=== PATIENT | male | born 1990 | race Caucasian/White ===

== ENCOUNTER 2016-06-23 09:18 | Emergency (ER) | payer OTHER ==
[2016-06-23 09:37] VITALS: TEMP 98.3; BMI 49.0
--- NOTE | 2016-06-23 10:14 | EDPRACDOC ---
- General Information Chief Complaint: Allergic Reaction Stated Complaint: ALLERGIC REACTION Time Seen by Provider: 06/23/16 09:43 Information Source: Patient Home Medications: Home Medications Azithromycin [Zithromax] 250 mg PO DAILY 06/23/16 Prednisone [Deltasone, Orasone] 1 tab PO DAILY #10 tablet 06/23/16 Prednisone [Deltasone, Orasone] 20 mg PO BID 06/23/16 Allergies/Adverse Reactions: Allergies Allergy/AdvReac Type Severity Reaction Status Date / Time No Known Drug Allergies Allergy Unknown Verified 06/23/16 11:01 - History of Present Illness HPI: STARTED ZPAK 5 DAYS AGO. RASH STARTED THIS AM. ALSO TAKING PREDNISONE. NO NEW EXPOSURE AT WORK PER PT. Exposure occurred: 05 Exposed to: Medication Symptoms started: Minutes Symptoms Developed: Denies: Difficulty swallowing Reaction Severity: Shortness of breath: None, Rash: Moderate, Difficult swallowing: None, Prurits: Moderate Reaction Location: Reports: Generalized Associated Signs and Symptoms: Reports: None ED Past Medical History - History Reviewed Yes Nurses notes reviewed and agree except as marked - Patient Medical History Psychological History: Denies: Depression Systemic History: Denies: Cancer Surgical History: Reports: Tonsillectomy/Adnoidectomy - Social Medical History Smoking Status: Never smoker EDM Review of Systems - Review of Systems ROS Negative Except as Marked: Yes All systems reviewed and were negative except as marked - Physical Exam Constitutional: Alert (Awake), No apparent distress Oriented to: Time, Person, Place Last recorded Vital Signs: Last Vital Signs Temp 98.3 F 06/23/16 09:35 Pulse 85 06/23/16 09:35 Resp 20 06/23/16 09:35 BP 170/72 06/23/16 09:35 Pulse Ox 99 06/23/16 09:35 Oxygen Pulse Oxygen Saturation 99 O2 Device Room Air Oxygen Flow Rate Fraction of Inspired Oxygen ( FIO2) - HEENT Head: Normal ( normocephalic) Eye Exam: Normal (PERRL, EOMI, Sclera white) Oropharynx: Normal (Pharynx:Moist without exudate,Gums-no swelling) ENT EAC: Normal TMJ: Normal Nose: No Symptoms Reported (septum midline) Neck: Normal (FROM, trachea at midline) - Respiratory/Cardiovascular Respiratory: Normal - CTA (BBS clear to auscultation without adventitious sounds ) Cardiovascular: Normal (RRR without murmur, gallop or rub) - GI Auscultation: Normal (NABS) Palpation: Normal (Soft,No rebound or guarding, non distended) Tenderness: Non tender Godoy's Sign: Negative - Musculoskeletal Back: Normal (Non-Tender) Extremities: Normal (Normal tone, Pulses 2+ No cyanosis or edema, FROM) - Integumentary Skin: Normal, Warm, Dry Lymphatics: Normal (no adenopathy) - Neurologic Memory Impaired: Normal Motor Function: Normal (Normal tone, Pulses 2+ No cyanosis or edema, FROM) Cranial Nerve: Normal (CN II-X11 intact sensation, strength 5/5) Cerebellar: Normal Mood Description: Normal Perception: Normal Decision Time to Discharge: 12:05 - Departure Yes I personally saw and evaluated the patient. Disposition: Home Condition: Good Final Diagnosis: Allergic urticaria Instructions: Urticaria (ED) Education/Counseling Given To: Patient Education/Counseling Given Regarding: Diagnosis, Treatment, Prognosis Referrals: Juan Manuel Vargas MD [Primary Care Provider] - One Week Prescriptions: Prednisone [Deltasone, Orasone] 1 tab PO DAILY #10 tablet
[2016-06-23 12:23] VITALS: PULSE 84
[2016-06-23 12:33] VITALS: BP 165/74
== END 2016-06-23 12:29 | disposition home or self-care (01) ==
LOC: ED 09:18
DX: L50.0 Allergic urticaria (principal)
CPT/HCPCS: 96372; 99283; J0171